=== PATIENT | female | born 1945 | race Caucasian/White ===

== ENCOUNTER 2017-08-18 12:49 | Emergency (ER) | payer OTHER ==
[~2017-08-18] VITALS: Ht 162.6 cm; Wt 74.6 kg
[~2017-08-18 12:49] MED LIST: ASPIRIN81 M1 PO; B 12; CITRACAL W/V1 TABLET PO; DILTIAZEM; FISH OIL; PANTOPRAZOLE SO40 MG PO; SIMVASTATIN20 MG PO; VIT C; VIT D; ZOLOFT50 M1 PO
[2017-08-18] MEDS ORDERED: KEFLEX500 MG PO (15:13)
[2017-08-18 15:29] VITALS: BP 141/78
== END 2017-08-18 15:29 | disposition home or self-care (01) ==
LOC: EME 12:49
DX: S51.812A Laceration without foreign body of left forearm, initial encounter (principal); S61.512A Laceration without foreign body of left wrist, initial encounter; W25.XXXA Contact with sharp glass, initial encounter; Y93.E9 Activity, other interior property and clothing maintenance; Z23 Encounter for immunization; Z79.82 Long term (current) use of aspirin; E78.5 Hyperlipidemia, unspecified; K21.9 Gastro-esophageal reflux disease without esophagitis; G43.909 Migraine, unspecified, not intractable, without status migrainosus; F41.9 Anxiety disorder, unspecified; F32.9 Major depressive disorder, single episode, unspecified; Z90.49 Acquired absence of other specified parts of digestive tract; Z85.3 Personal history of malignant neoplasm of breast
CPT/HCPCS: 73090; 73130; 99281; 99284

== ENCOUNTER 2017-09-04 08:29 | Day surgery (SDC) | payer OTHER ==
[~2017-09-04] VITALS: Ht 162.6 cm; Wt 72.5 kg
[~2017-09-04 08:29] MED LIST changes: +ADULT ASPIRIN81 MG PO; +CYANOCOBALAM1000 MCG PO; +KEFLEX500 MG PO; +LANSOPRAZOLE30 MG PO; +METFORMIN HCL500 M1 PO; +OMEGA 3-6-9 CO400 MG PO; +VITAMIN C1000 MG PO; +VITAMIN D32000 UNI1 PO; +VITAMIN E1000 UNIT PO; -ZOLOFT50 M1 PO; +ZOLOFT50 MG PO
[2017-09-04 09:08] VITALS: BP 123/64
[2017-09-04] MEDS ORDERED: DILAUDID2 MG PO (14:25)
[2017-09-04 16:05] VITALS: BP 124/65
[2017-09-04 17:13] VITALS: BP 122/64
== END 2017-09-04 17:15 | disposition home or self-care (01) ==
LOC: SDC 08:29 → NUC 10:20 → SDC 10:20
PROVIDERS: Surgery
PROC: 07B50ZX Excision of Right Axillary Lymphatic, Open Approach, Diagnostic (ICD-10-PCS; principal; 2017-09-04)
PROC: 0HBT0ZX Excision of Right Breast, Open Approach, Diagnostic (ICD-10-PCS; principal; 2017-09-04)
DX: C50.511 Malignant neoplasm of lower-outer quadrant of right female breast (principal); Z17.0 Estrogen receptor positive status [ER+]; C77.3 Secondary and unspecified malignant neoplasm of axilla and upper limb lymph nodes; K21.9 Gastro-esophageal reflux disease without esophagitis; E11.9 Type 2 diabetes mellitus without complications; E80.4 Gilbert syndrome; K58.9 Irritable bowel syndrome, unspecified; E78.2 Mixed hyperlipidemia; E66.3 Overweight; Z68.24 Body mass index [BMI] 24.0-24.9, adult; Z79.82 Long term (current) use of aspirin; Z79.84 Long term (current) use of oral hypoglycemic drugs; Z88.5 Allergy status to narcotic agent; Z88.1 Allergy status to other antibiotic agents; Z88.8 Allergy status to other drugs, medicaments and biological substances; Z82.49 Family history of ischemic heart disease and other diseases of the circulatory system; Z90.710 Acquired absence of both cervix and uterus; Z90.49 Acquired absence of other specified parts of digestive tract
CPT/HCPCS: 78195; 78999; 82948; 88305; 88307; 88341 TC; 88342 TC; A9541; J0131; J0330; J0690; J1100; J1170; J2250; J2405; J3010; S0020